=== PATIENT | female | born 1990 ===

== ENCOUNTER 2017-03-05 17:22 | Emergency (ER) | payer BC ==
[2017-03-05 17:35] VITALS: BP 115/57
--- NOTE | 2017-03-05 18:27 | UC ---
Complaint Female HPI - HPI Summary HPI Summary: Patient presents with complaints of dysuria x 1-2 days and is getting worse, she reports urinary frequency, and decreased output, with a sensation of having to strain to urinate. 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 She is taking claritin D, with minimal effect. She denies fever, chills, purulent nasal discharge, abnormal vaginal discharge or bleeding. - History Of Current Complaint Chief Complaint: UCGU Stated Complaint: URINARY FREQUENCY,STRAINING, ALLERGIES Time Seen by Provider: 03/05/17 18:09 Hx Obtained From: Patient Hx Last Menstrual Period: February 24 ?: No Onset/Duration: Gradual Onset, Lasting Days Timing: Lasting Days Severity Initially: Moderate Severity Currently: Moderate Character: Burning Aggravating Factor(s): Urination - Risk Factors Ectopic Risk Factor: Negative Ovarian Torsion Risk Factor: Negative - Allergies/Home Medications Allergies/Adverse Reactions: Allergies Allergy/AdvReac Type Severity Reaction Status Date / Time No Known Allergies Allergy Verified 03/05/17 17:36 Home Medications: Home Medications LoraTADine TAB(NF) [Claritin 10 MG TAB(NF)] 10 mg PO DAILY 03/05/17 [History Confirmed 03/05/17] PMH/Surg Hx/FS Hx/Imm Hx Previously Healthy: Yes GI/ History: Other - uti Other GI/ History: uti - Surgical History Surgical History: None - Family History Known Family History: Positive: None - Social History Alcohol Use: Occasionally Substance Use Type: None Smoking Status (MU): Never Smoked Tobacco - Immunization History Most Recent Influenza Vaccination: 2013 Review of Systems Genitourinary: Dysuria, Frequency, Urgency All Other Systems Reviewed And Are Negative: Yes Physical Exam Triage Information Reviewed: Yes Appearance: Well-Appearing Vital Signs: Initial Vital Signs Temp 98.6 F 03/05/17 17:33 Pulse 73 03/05/17 17:33 Resp 18 03/05/17 17:33 BP 115/57 03/05/17 17:33 Pulse Ox 100 03/05/17 17:33 Vital Signs Reviewed: Yes Eye Exam: Normal ENT: Positive: Pharyngeal erythema, Nasal congestion, Other: - turbinates pale boggy with clear anterior nasal rhinorrhea. Neck exam: Normal Respiratory Exam: Normal Abdominal Exam: Normal Skin Exam: Normal Complaint Female Dx - Course Course Of Treatment: Patient presents with complaints of dysruria, with frequency. She was well appearing with a benigh abdominal examination. Ua + uti treated with macrobid 100 mg po bid x 7 days, puridium 200 mg po tid x 3 days, and for symtpoms of seasonal allergies allergic rhinitis continue with claritin d, and flonase, and to wear mask while in the barn or in contact with large animal to prevent exposure to allergens. - Differential Dx/Diagnosis Differential Diagnosis/HQI/PQRI: Urinary Tract Infection, Other - allergic rhinitis Provider Diagnoses: uti. allergic rhinitis Discharge - Discharge Plan Condition: Stable Disposition: HOME Prescriptions: Fluticasone NASAL * [Flonase *] 2 spray BOTH NARES DAILY #1 spray Nitrofurantoin Monohyd Macro [Macrobid] 100 mg PO BID #14 cap Phenazopyridine 200 mg (NF) [Pyridium 200 MG tab] 200 mg PO TID #6 tab Patient Education Materials: Allergic Rhinitis (ED), Urinary Tract Infection in Women (ED) Referrals: No Primary Care Phys,NOPCP [Primary Care Provider] -
== END 2017-03-05 19:00 | disposition home or self-care (01) ==
LOC: UCEAST 17:22
DX: N39.0 Urinary tract infection, site not specified (principal); J30.9 Allergic rhinitis, unspecified; Z87.440 Personal history of urinary (tract) infections
CPT/HCPCS: 81003; 84702; 87077; 87086; 87186; 99212; G0463